=== PATIENT | male | born 2000 | race Caucasian/White ===

== ENCOUNTER 2021-03-24 10:09 | Emergency (ER) | payer OTHER ==
[~2021-03-24] VITALS: Ht 177.8 cm; Wt 89.1 kg
--- NOTE | 2021-03-24 11:09 | NUR ---
INITIAL CONTACT: PT/W C/OABD PAIN, N/V AND FEVER SINCE SUNDAY. PER PATIENT HE WAS 205 LB SUNDAY AND TODAY IN TRIAGE 196 LBS. PT WITH STEADY GAIT TO BATHROOM AND TO BED. POSTIONED TO COMFORT IN BED. ATTACHED TO MONITOR. MATEUS. KATHIA. DR. MARADIAGA EVALUATED
[2021-03-24] MEDS ORDERED: ONDANSETRON 2MG/ML, 2ML ONE (11:14)
[2021-03-24] MEDS ORDERED: MORPHINE SULFATE 4 MG/ML, 1ML ONE (11:14)
[2021-03-24 11:19] LABS: BASOPHILS % (AUTO) 0 % (0-1); EOSINOPHILS % (AUTO) 0 % (1-7); LYMPHOCYTES % (AUTO) 14 % (22-44); MEAN CORPUSCULAR HEMOGLOBIN 31.6 pg (27.5-34.5); MEAN CORPUSCULAR HGB CONC 34.9 g/dL (33.2-36.2); MEAN PLATELET VOLUME 8.8 fL (7.4-10.4); MONOCYTES % (AUTO) 12 % (2-9); NEUTROPHILS % (AUTO) 74 % (42-75); PLATELET COUNT 362 x10^3/uL (130-400); RED BLOOD COUNT 5.67 x10^6/uL (4.38-5.82); RED CELL DISTRIBUTION WIDTH 12.6 % (9.4-14.8)
[2021-03-24 11:27] LABS: ALBUMIN 4.5 g/dL (3.4-5.0); ANION GAP 10 mmol/L (5-15); CALCIUM 9.6 mg/dL (8.5-10.1); CHLORIDE 100 mmol/L (98-107)
[2021-03-24] MEDS ORDERED: MORPHINE SULFATE 4 MG/ML, 1ML IVPush PRN (11:30)
[2021-03-24] MEDS ORDERED: ONDANSETRON 2MG/ML, 2ML IVPush ONE (11:30)
[2021-03-24] MEDS ORDERED: SODIUM CHLORIDE 0.9% 1,000ML IVBOLUS ONE (11:30)
[2021-03-24] MEDS ORDERED: SODIUM CHLORIDE FLUSH 10ML SYR IVF ONE (11:30)
[2021-03-24 11:36] LABS: MICROSCOPIC INDICATED
[2021-03-24 11:54] LABS: ALANINE AMINOTRANSFERASE 18 U/L (12-78); ALKALINE PHOSPHATASE 104 U/L (45-117); CREATININE 1.04 mg/dL (0.7-1.3); TOTAL PROTEIN 8.2 g/dL (6.4-8.2)
--- NOTE | 2021-03-24 12:12 | NUR ---
PT RESTING IN BED WITH FRIEND AT BEDSIDE. VSS. BAE.
[2021-03-24] MEDS ORDERED: OMNIPAQUE 350 MG/ML, 100ML BOTTLE ONE (13:05)
--- NOTE | 2021-03-24 13:10 | NUR ---
PT BACK FROM CT. RESTING IN BED. REQ WATER. EDUCATED ON NPO. VSS. NADN.
[2021-03-24 13:48] VITALS: BP 134/69
--- NOTE | 2021-03-24 13:49 | NUR ---
pt asleep with even and unlabored respirations.
--- NOTE | 2021-03-24 14:17 | NUR ---
Patient/Caregiver given discharge instructions and they have confirmed that they understand the instructions. Patient ambulatory with steady gait. NAD, all questions answered appropriately, denies additional needs at this time. No personal belongings left in room after discharge.
== END 2021-03-24 14:18 | disposition home or self-care (01) ==
LOC: ED 11:41
DX: E80.6 Other disorders of bilirubin metabolism (principal); R11.2 Nausea with vomiting, unspecified; R10.84 Generalized abdominal pain; F17.200 Nicotine dependence, unspecified, uncomplicated
CPT/HCPCS: 36415; 74177; 76700; 80053; 80074; 81001; 83690; 85025; 86308; 96361; 96374; 96375; 99285; J2270; J2405; J7030; Q9967

== ENCOUNTER 2021-03-25 07:01 | Emergency (ER) | payer OTHER ==
[~2021-03-25] VITALS: Ht 177.8 cm; Wt 89.4 kg
[2021-03-25] MEDS ORDERED: ONDANSETRON 2MG/ML, 2ML ONE (07:28)
[2021-03-25] MEDS ORDERED: FAMOTIDINE 20 MG/2 ML ONE (07:29)
[2021-03-25] MEDS ORDERED: MORPHINE SULFATE 4 MG/ML, 1ML ONE (07:29)
[2021-03-25] MEDS ORDERED: ONDANSETRON 2MG/ML, 2ML IVPush ONE (07:30)
[2021-03-25] MEDS ORDERED: SODIUM CHLORIDE 0.9% 1,000ML IVBOLUS ONE (07:30)
[2021-03-25] MEDS ORDERED: MORPHINE SULFATE 4 MG/ML, 1ML IVPush PRN (07:30)
[2021-03-25] MEDS ORDERED: FAMOTIDINE 20 MG/2 ML IVPush ONE (07:30)
[2021-03-25 07:39] LABS: BASOPHILS % (AUTO) 1 % (0-1); EOSINOPHILS % (AUTO) 0 % (1-7); LYMPHOCYTES % (AUTO) 15 % (22-44); MEAN CORPUSCULAR HEMOGLOBIN 31.8 pg (27.5-34.5); MEAN CORPUSCULAR HGB CONC 35.2 g/dL (33.2-36.2); MEAN PLATELET VOLUME 8.4 fL (7.4-10.4); MONOCYTES % (AUTO) 12 % (2-9); NEUTROPHILS % (AUTO) 72 % (42-75); PLATELET COUNT 304 x10^3/uL (130-400); RED BLOOD COUNT 5.34 x10^6/uL (4.38-5.82); RED CELL DISTRIBUTION WIDTH 12.7 % (9.4-14.8)
[2021-03-25 07:49] LABS: ALANINE AMINOTRANSFERASE 16 U/L (12-78); ALBUMIN 4.1 g/dL (3.4-5.0); ANION GAP 8 mmol/L (5-15); BILIRUBIN, DIRECT 0.4 mg/dL (0.1-0.2); CHLORIDE 101 mmol/L (98-107); CREATININE 1.09 mg/dL (0.7-1.3)
[2021-03-25 07:51] LABS: ALKALINE PHOSPHATASE 98 U/L (45-117); BILIRUBIN,TOTAL 6.4 mg/dL (0.2-1.0); TOTAL PROTEIN 7.4 g/dL (6.4-8.2)
--- NOTE | 2021-03-25 08:02 | NUR ---
PT PLACED ON 2 LPM O2 VIA NC DUE TO DESATTING WHILE SLEEPING AFTER MED ADMINISTRATION.
[2021-03-25] MEDS ORDERED: POTASSIUM CHLORIDE 20 MEQ TAB.ER.PRT ONE (08:41)
[2021-03-25] MEDS ORDERED: MAALOX/HYOSCYAMINE/LIDOCAINE 45 ML BTL ONE (08:42)
[2021-03-25] MEDS ORDERED: MAALOX/HYOSCYAMINE/LIDOCAINE 45 ML BTL PO ONE (09:00)
[2021-03-25] MEDS ORDERED: LACTATED RINGERS 1,000 ML IV ONE (09:00)
[2021-03-25] MEDS ORDERED: POTASSIUM CHLORIDE 20 MEQ TAB.ER.PRT PO ONE (09:00)
[2021-03-25 09:05] LABS: MICROSCOPIC INDICATED
[2021-03-25 10:18] VITALS: BP 154/87
== END 2021-03-25 10:23 | disposition home or self-care (01) ==
LOC: ED 07:37
DX: E80.6 Other disorders of bilirubin metabolism (principal); K29.00 Acute gastritis without bleeding; E87.6 Hypokalemia
CPT/HCPCS: 36415; 80053; 81001; 82247; 82248; 83615; 83690; 85025; 96361; 96374; 96375; 99285; J2270; J2405; J7030; J7120